=== PATIENT | female | born 1985 | race Caucasian/White ===

== ENCOUNTER 2018-10-06 01:50 | Emergency (ER) ==
[~2018-10-06] VITALS: Ht 147.3 cm; Wt 88.9 kg
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
[2018-10-06] MEDS ORDERED: HYDROCODONE/APAP 10/325MG 1 EA TABLET ONE (02:44)
[2018-10-06] MEDS ORDERED: ONDANSETRON 4 MG TAB.RAPDIS ONE (02:45)
--- NOTE | 2018-10-06 02:49 | NUR ---
XRAY AT BEDSIDE
[2018-10-06] MEDS ORDERED: HYDROCODONE/APAP 10/325MG 1 EA TABLET PO ONE (03:00)
[2018-10-06] MEDS ORDERED: ONDANSETRON 4 MG TAB.RAPDIS SL ONE (03:00)
[2018-10-06] MEDS ORDERED: PROPOFOL 1,000 MG/100 ML BOTTLE IV ONE (03:30)
[2018-10-06] MEDS ORDERED: IV NS 0.9% 1,000 ML BAG IV ONE (03:30)
[2018-10-06] MEDS ORDERED: PROPOFOL 20 ML IV ONE (04:03)
--- NOTE | 2018-10-06 04:12 | NUR ---
MODERATE SEDATION, RT ELBOW REDUCTION COMPLETED AT BEDSIDE WITH KAYLI MARTINEZ, RN KAYLAH, RN SHERICE, AND RT. SUCCESSFUL REDUCTION. PT TOLERATED PROCEDURE WELL.
--- NOTE | 2018-10-06 06:10 | NUR ---
Patient discharged to home in stable condition. Written and verbal after care instructions given. Patient verbalizes understanding of instruction. IV removed. Catheter intact and site benign. Pressure and 4x4 applied to site. No bleeding noted. AMBULATED WITH STABLE GAIT. VSS. NAD. INSTRUCTED NOT TO OPERATE OR DRIVE HEAVY MACHINERY
[2018-10-06 06:12] VITALS: BP 122/88
== END 2018-10-06 06:12 | disposition home or self-care (01) ==
LOC: ER 01:52
DX: S53.124A Posterior dislocation of right ulnohumeral joint, initial encounter (principal); S52.121A Displaced fracture of head of right radius, initial encounter for closed fracture; S52.021A Displaced fracture of olecranon process without intraarticular extension of right ulna, initial encounter for closed fracture; Y04.8XXA Assault by other bodily force, initial encounter; Y93.89 Activity, other specified; Y92.89 Other specified places as the place of occurrence of the external cause; Y99.8 Other external cause status
CPT/HCPCS: 24600; 73060; 73070 ×2; 73090; 99152; 99285; J2704; J7030; Q0162; G0500

== ENCOUNTER 2018-10-06 19:51 | Emergency (ER) | payer OTHER ==
[~2018-10-06] VITALS: Ht 147.3 cm; Wt 89.4 kg
[2018-10-06] MEDS ORDERED: HYDROCODONE/APAP 5/325MG 1 EACH TABLET ONE (21:48)
--- NOTE | 2018-10-06 21:59 | NUR ---
PT REC'D MEDICATION.
--- NOTE | 2018-10-06 21:59 | NUR ---
XRAY IN PROGRESS AT THE BEDSIDE.
[2018-10-06] MEDS ORDERED: HYDROCODONE/APAP 5/325MG 1 EACH TABLET PO ONE (22:00)
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
--- NOTE | 2018-10-06 22:33 | NUR ---
CALLED LAB TO VERIFY PT'S URINE SAMPLE WAS COLLECTED. PT WOULD LIKE AN HCG TEST RUN. SPOKE TO DR AVENDANO WHO OK'D HCG TEST TO BE ORDERED FOR THE PT.
--- NOTE | 2018-10-06 23:21 | NUR ---
PT APPEARS TO BE SLEEPING COMFORTABLY WITH NO S/S OF PAIN OR DISTRESS. PT DOES NOT WANT TO BE ON THE MONITOR AND CONTINUOUS PULSE OX AT THIS TIME. PT STATED THAT SHE FINALLY FEELS OK.
--- NOTE | 2018-10-07 00:13 | NUR ---
CALLED [facility]EC[facility] RE: CT READ.
--- NOTE | 2018-10-07 01:48 | NUR ---
PT REC'D AN ORTHOGLASS 3" VOLAR SPLINT.
[2018-10-07 01:51] VITALS: BP 135/85
--- NOTE | 2018-10-07 01:57 | NUR ---
Patient discharged to home in stable condition. Written and verbal after care instructions given. Patient verbalizes understanding of instruction. PT AMBULATED OUT WITH A STEADY GAIT. PT'S MOTHER IS DRIVING THE PT HOME. VSS.
== END 2018-10-07 01:52 | disposition home or self-care (01) ==
LOC: ER 19:53
DX: S52.592A Other fractures of lower end of left radius, initial encounter for closed fracture (principal); M25.562 Pain in left knee; Y08.89XA Assault by other specified means, initial encounter; Y93.89 Activity, other specified; Y92.89 Other specified places as the place of occurrence of the external cause; Y99.8 Other external cause status
CPT/HCPCS: 73110; 73564-TC; 84703-TC